=== PATIENT | female | born 1965 | race Caucasian/White ===

== ENCOUNTER 2021-11-15 07:08 | Day surgery (SDC) | payer MEDICAID, SELFPAY ==
--- NOTE | 2021-11-15 07:35 | W.ANESPRE ---
General Info Date of Service Date Performed: 11/15/21 Height: 5 ft 5 in Weight: 82.554 kg Body Mass Index (BMI): 30.2 Surgical Procedure: Operation Date: 11/15/21 08:25 Proposed Procedure Side Surgeon p Cataract Extraction with IOL Implant Left Len Ortega MD Meds Allergies and Home Medications Allergies Allergy/AdvReac Type Severity Reaction Status Date / Time Penicillins Allergy Severe Anaphylaxis Verified 11/15/21 07:34 bupropion Allergy Intermediate Skin Rash Verified 11/15/21 07:34 lisinopril Allergy Mild Other (See Verified 11/15/21 07:34 Comment) fluoxetine Allergy Unknown Other (See Verified 11/15/21 07:34 Comment) paroxetine Allergy Unknown Other (See Verified 11/15/21 07:34 Comment) citalopram AdvReac Intermediate Headache Verified 11/15/21 07:34 metformin AdvReac Intermediate Nausea Verified 11/15/21 07:34 seafood Allergy Intermediate Other (See Uncoded 11/11/21 09:19 Comment) Home Medication Medication Instructions Recorded docusate sodium 100 mg capsule 100 mg PO DAILY 11/11/21 duloxetine 60 mg capsule,delayed 60 mg PO DAILY 11/11/21 release empagliflozin 25 mg tablet 25 mg PO DAILY 11/11/21 letrozole 2.5 mg tablet 2.5 mg PO DAILY 11/11/21 levothyroxine 100 mcg tablet 100 mcg PO DAILY 11/11/21 linagliptin 5 mg tablet 5 mg PO QAM 11/11/21 losartan 25 mg tablet 25 mg PO DAILY 11/11/21 meloxicam 15 mg tablet 15 mg PO DAILY 11/11/21 metformin 500 mg tablet 500 mg PO DAILY 11/11/21 omeprazole 20 mg capsule,delayed 40 mg PO DAILY 11/11/21 release pravastatin 40 mg tablet 40 mg PO HS 11/11/21 pregabalin 150 mg capsule 150 mg PO BID 11/11/21 Current Visit Medications: Current Medications Generic Name Dose Route Start Last Admin Trade Name Freq PRN Reason Stop Dose Admin Acetaminophen 1,000 mg 11/15/21 06:00 Acetaminophen 500 Mg Tab PO Q4H PRN PRN Miscellaneous Medication 0 ml 11/15/21 06:00 Prednisolone 1%, Moxifloxacin 0.5%, Nepafenac 0.1% 5ml Btl OS DIRECTED MARTINEZ Miscellaneous Medication 0 ml 11/15/21 06:00 Tropicam./Phenyleph. (1/2.5%) 5 Ml Btl OS DIRECTED [facility] Tetracaine HCl 0 ml 11/15/21 06:00 Tetracaine 0.5% 4 Ml Btl OS DIRECTED [facility] PFSH Active Problems Active Problems: Problem Status Onset Code Nuclear sclerotic cataract of left eye H25.12 Medical History Medical History Adjustment disorder with mixed anxiety and depressed mood Anemia Back pain Bleeding disorder pt. states this was why she had her hysterectomy does not remember what it was Carcinoma of right breast with ductal and lobular features Cervical radiculopathy Chest wall pain Pt. states this is a result of fibromyalgia Chronic bronchitis Costochondritis, acute Depression Essential (primary) hypertension Feeling grief Female stress incontinence Fibromyalgia Financial difficulties GERD without esophagitis Housing situation unstable Hyperlipidemia Hypothyroidism IBS (irritable bowel syndrome) Inflammatory breast carcinoma Per office note: suspicion per dr. majano advised to return to [facility] hem/onc. Irritation of vulva Migraine Mixed hyperlipidemia Nicotine dependence Onychomycosis PTSD (post-traumatic stress disorder) Skin rash Tobacco abuse Type 2 diabetes mellitus with diabetic neuropathy Surgical History Surgical History History of partial mastectomy of right breast History of repair of hiatal hernia Hx of appendectomy Hx of cholecystectomy Hx of colonoscopy Hx of esophagogastroduodenoscopy Hx of hysterectomy Hx of tonsillectomy Tobacco Smoking/Tobacco Use Status: Current every day Tobacco Type: cigarettes Alcohol Alcohol Intake: never Substance Use Substance use: Never Substance use type: does not use Vital Signs and Lab Results Point of Care Results Point of Care Results: Finger Stick Blood Glucose 173 11/15/21 07:27 Lab Results Blood Type / Crossmatch: No Data to Display Complete Blood Count: No Data to Display Complete Metabolic Panel: No Data to Display Liver Function Panel: No Data to Display Coagulation Panel: No Data to Display Cardiac Panel: No Data to Display Arterial Blood Gas: No Data to Display Venous Blood Gas: No Data to Display Pancreas Panel: No Data to Display Thyroid Panel: No Data to Display Infectious Disease: No Data to Display Blood Cultures: No Data to Display Toxicology Panel: No Data to Display Anesthesia Assessment and Plan Anesthesia History Personal History: No History of Anesthesia Complications Family History: No Family History of Anesthesia Complications Exercise Tolerance Exercise Tolerance: Metabolic Equivalents>4 Pertinent Negatives Pertinent Negatives: No Symptoms of GERD Cardiac & Pulmonary Exam Cardiac Exam: Normal S1/S2 Heart Sounds Pulmonary Exam: Clear Bilateral Breath Sounds Implantable Cardiac Device Does patient have a Pacemaker or an ICD?: No Airway Exam Known Difficult Airway: No Mallampati Class: 2 Mouth Opening: Normal (> 3cm) Thyromental Distance: Greater than 3 cm Neck Range of Motion: Full ROM Neck Circumference: Normal Teeth Condition: Generalized Poor Dentition and Edentulous (No upper teeth) ASA Classification ASA Score: ASA 2 Emergency Case?: No NPO Status NPO Status: NPO Clears >2 hours, Solids >8 hours Anesthesia Plan Resuscitation Status: Full Code Anesthesia Technique: MAC Anesthesia Airway Planned: Natural Airway Monitors Used: Standard Monitors
[2021-11-15 07:38] VITALS: BP 124/78; PULSE 90; RESP 17; TEMP 36.4; O2SAT 96
[2021-11-15] MEDS: Tropicam./Phenyleph. (1/2.5%) 5 ML BTL OS ×2 (07:46→07:51)
[2021-11-15 08:02] VITALS: BMI 30.2
[2021-11-15] MEDS: Tetracaine 0.5% 4 ML BTL OS (08:09)
[2021-11-15] MEDS: Lidocaine 2% Jelly 6 ML SYR (08:09)
[2021-11-15] MEDS: Povidone-Iodine Ophth 30 ML BTL (08:10)
[2021-11-15] MEDS: Balanced Salt Soln.-PLUS 500 ML BAG (08:20)
[2021-11-15] MEDS: Duovisc Viscoelastic System EACH 1 EACH (08:20)
[2021-11-15 08:37] VITALS: BP 131/84; PULSE 85; RESP 16; TEMP 36; O2SAT 96
--- NOTE | 2021-11-15 08:38 | PDOC.DSDIS_ITS ---
Discharge Plan Disposition Patient Disposition: HOME Condition: Good Discharge Details Attending Provider: Len Ortega Primary Care Provider: TRINIDAD CHONG [place] Meds and New Rx's Prescriptions: No Action metformin 500 mg Tablet 500 mg PO DAILY 0RF pravastatin 40 mg Tablet 40 mg PO HS 0RF meloxicam 15 mg Tablet 15 mg PO DAILY 0RF levothyroxine 100 mcg Tablet 100 mcg PO DAILY 0RF losartan 25 mg Tablet 25 mg PO DAILY 0RF docusate sodium 100 mg Capsule 100 mg PO DAILY 0RF omeprazole 20 mg Capsule,Delayed Release(Dr/Ec) 40 mg PO DAILY 0RF letrozole 2.5 mg Tablet 2.5 mg PO DAILY 0RF duloxetine 60 mg Capsule,Delayed Release(Dr/Ec) 60 mg PO DAILY 0RF pregabalin 150 mg Capsule 150 mg PO BID 0RF linagliptin 5 mg Tablet 5 mg PO QAM 0RF empagliflozin 25 mg Tablet 25 mg PO DAILY 0RF Discharge Instructions Stand Alone Forms: Post-op Topical Cataract, Petar Garcia (DSU) Discharge Orders Discharge Orders: Discharge Order (Routine); Ordered 11/15/21 Ordered By: Len Ortega DS: Diagnosis Discharge Diagnosis (1) Nuclear sclerotic cataract of left eye: Status: Resolved
--- NOTE | 2021-11-15 08:39 | W.PM.OP ---
Date of service: 11/15/21 Time of Service: 08:39 Operative Note Operative Note DATE OF PROCEDURE: 11/15/21 PRE-OP DIAGNOSIS: Nuclear cataract, left eye POST-OP DIAGNOSIS: same PROCEDURE: Cataract extraction using phacoemulsification with intraocular lens implant, left eye SURGEON: Len Ortega ANESTHESIA TYPE: Local By Surgeon and MAC Refer to Anesthesia Record PATHOLOGY: none sent COMPLICATIONS: None Patient was transported to: same day Patient's condition: stable Implants: All and All / [employer] Tecnis [id number] Indications: Progressive decreased vision due to cataract, left eye Procedure Description: CATARACT SURGERY OPERATIVE REPORT PREOPERATIVE DIAGNOSIS: 1. Nuclear cataract, left eye POSTOPERATIVE DIAGNOSIS: Same OPERATION: 1. Cataract extraction using phacoemulsification with posterior chamber intraocular lens implant, left eye. IOL: IOL Superintendent Maintenance/Model: All & All / RYAN Tecnis [id number] IOL Power: + 24.0 diopters IOL Serial Number: [id number] Optic Diameter: 6.0 mm Haptic/Overall Diameter: 13.0 mm PHACO INFO: Tyrell Next Generation Contractingurion Vision System with OZil and Active Fluidics Cumulative Dispersed Energy (CDE): 8.42 seconds SURGEON: Len Ortega MD, JUSTO ANESTHESIA: Monitored A [facility] (MAC), with local sub-tenon's anesthetic infiltration COMPLICATIONS: None SPECIMENS: None INDICATIONS FOR PROCEDURE: The patient is a 56-year-old lady with history of diminished visual acuity in her left eye secondary to the development of nuclear cataract. She is significantly symptomatic that she desires cataract surgery and attempt to improve and maximize her vision. PROCEDURE: The correct surgical eye was identified and marked as the left eye and the pupil was dilated in the preoperative area using mydriatics and cycloplegics. The dilated pupil size was 7.0 mm. She elected to proceed without oral sedation. The patient was brought to the operating room where cardiopulmonary monitoring was instituted and surgical time-out was performed, confirming the correct operative eye and IOL power. Topical anesthesia was administered and ophthalmic povidone-iodine 5% was instilled into the conjunctival fornices. Lidocaine gel was applied to the cornea and the balta-ocular area was prepped with Betadine 10% solution and draped in the usual sterile fashion for intraocular surgery, including an aperture drape. A Tegaderm transparent film dressing was cut in half and used to cover the lashes and lid margins. Care was taken to sequester the lashes and lid margins under the Tegaderm dressing. A lid speculum was placed between the lids of the operative eye and the Tyrell LuxOR Revalia operating microscope was maneuvered into position. Archie scissors were then used to make a conjunctival buttonhole approximately 6mm posterior to the limbus in the inferonasal quadrant. Blunt dissection was carried out to expose bare sclera, and a blunt-tipped sub-tenon?s anesthesia cannula was introduced and passed posteriorly along the globe where non-preserved plain lidocaine was injected into posterior sub-Tenon?s space. A sideport knife was used to make a paracentesis port superiorly/superiortemporally. Intraocular phenylephrine/lidocaine was injected int the anterior chamber.. The anterior chamber was filled with viscoelastic. A 2.4mm keratome knife was used to construct a 2-plane near-clear corneal tunnel extending 2.0mm into clear cornea temporally. A flap was raised on the anterior capsule and capsulorhexis forceps were used to complete a continuous curvilinear capsulorhexis of 5.0mm. Balanced salt solution was then used to perform cortical cleaving hydrodissection and nuclear hydrodelineation until the lens could be freely rotated within the capsular bag. The lens nucleus was then disassembled and removed within the capsular bag and iris plane using phacoemulsification. Residual cortical material was removed using the 45-degree angled silicone I/A tip with 0.3mm port. The posterior capsule was carefully polished to remove as much residual lens epithelial cells as safely possible. The capsular bag was then inflated and the anterior chamber deepened with viscoelastic. The lens implant described above was inserted into the capsular bag using the RYAN [place] Injector. A Kuglen hook was used to dial the IOL into position. Residual viscoelastic was then removed first from posterior to the IOL, then from the anterior chamber using the I/A handpiece. The lens implant was noted to center nicely within the capsular bag. The incisions were stromally hydrated, and the anterior chamber was reformed using BSS. Then 0.5cc of moxifloxacin 1.0mg/ml were injected into the capsular bag and anterior chamber. The incisions were checked with a Weck spear and found to be secure. Several drops of ophthalmic povidone-iodine 5% were then applied to the eye followed by two drops of Imprimis combination prednisolone/moxifloxacin/nepafenac solution. The drapes were removed and a clear plastic protective eye shield was placed over the eye. The patient was then returned to [facility] Day Surgery in stable condition.
--- NOTE | 2021-11-15 09:25 | W.ANESPOSTOP ---
Postoperative Evaluation Date, Time and Location Date Performed: 11/15/21 Time Performed: 08:40 Patient Location: Day Surgery Unit Vital Signs Most Recent Imported Vital Signs: Most Recent Vital Signs Temp Pulse Resp BP Pulse Ox 36.0 C L 85 16 131/84 96 11/15/21 08:37 11/15/21 08:37 11/15/21 08:37 11/15/21 08:37 11/15/21 08:37 Pain Score Most Recent Pain Score: Most Recent Pain Score Pain Level 0 11/15/21 08:37 Assessment Mental Status: Awake (Alert & Oriented to Patient Baseline) Airway and Respiratory Function: Patent airway with normal (patient baseline) respiratory exam Cardiovascular Function: Hemodynamically Stable Hydration Status: Adequately Hydrated Nausea & Vomiting: No Nausea or Vomiting Pain: Pt. Denies Any Pain Peripheral Nerve Block: Patient did not receive a nerve block
== END 2021-11-15 08:59 | disposition home or self-care (01) ==
PROVIDERS: Visit Provider Ophthalmology
PROC: (CPT 66984; principal; 2021-11-15 08:15)
DX: H25.12 Age-related nuclear cataract, left eye (principal); E11.40 Type 2 diabetes mellitus with diabetic neuropathy, unspecified; I10 Essential (primary) hypertension; K21.9 Gastro-esophageal reflux disease without esophagitis; F17.210 Nicotine dependence, cigarettes, uncomplicated
CPT/HCPCS: 66984; V2632

== ENCOUNTER 2023-09-08 11:26 | Emergency (ER) | payer MEDICAID, SELFPAY ==
[2023-09-08 11:31] VITALS: BP 166/90; PULSE 82; RESP 18; TEMP 36.6; O2SAT 93
[2023-09-08 11:38] VITALS: BP 166/90; PULSE 82; RESP 18; TEMP 36.6; O2SAT 93
--- NOTE | 2023-09-08 11:43 | W.ED.GENAD ---
Discharge Plan Disposition Patient Disposition: Home Condition: Improving Discharge Details Chief Complaint: RespSymp Clinical Impression: Cough Primary Care Provider: Anuradha Snyder ED Provider: Len Shah Home Meds and New Rx's Prescriptions: No Action metformin 500 mg Tablet 500 mg PO DAILY pravastatin 40 mg Tablet 40 mg PO HS meloxicam 15 mg Tablet 15 mg PO DAILY levothyroxine 100 mcg Tablet 100 mcg PO DAILY losartan 25 mg Tablet 25 mg PO DAILY docusate sodium 100 mg Capsule 100 mg PO DAILY omeprazole 20 mg Capsule,Delayed Release(Dr/Ec) 40 mg PO DAILY letrozole 2.5 mg Tablet 2.5 mg PO DAILY duloxetine 60 mg Capsule,Delayed Release(Dr/Ec) 60 mg PO DAILY pregabalin 150 mg Capsule 150 mg PO BID linagliptin 5 mg Tablet 5 mg PO QAM empagliflozin 25 mg Tablet 25 mg PO DAILY Discharge Instructions Instructions: Acute Cough (ED) Stand Alone Forms: Work Release HPI General Date/Time Provider Initiated Documentation: 09/08/23 11:30. HPI Narrative: 57-year-old female presents with nonproductive cough for the last 2 days, multiple sick contacts at home. Related Data Home Medications Medication Instructions Recorded Confirmed docusate sodium 100 mg capsule 100 mg PO DAILY 11/11/21 11/15/21 duloxetine 60 mg capsule,delayed 60 mg PO DAILY 11/11/21 11/15/21 release empagliflozin 25 mg tablet 25 mg PO DAILY 11/11/21 11/15/21 letrozole 2.5 mg tablet 2.5 mg PO DAILY 11/11/21 11/15/21 levothyroxine 100 mcg tablet 100 mcg PO DAILY 11/11/21 11/15/21 linagliptin 5 mg tablet 5 mg PO QAM 11/11/21 11/15/21 losartan 25 mg tablet 25 mg PO DAILY 11/11/21 11/15/21 meloxicam 15 mg tablet 15 mg PO DAILY 11/11/21 11/11/21 metformin 500 mg tablet 500 mg PO DAILY 11/11/21 11/15/21 omeprazole 20 mg capsule,delayed 40 mg PO DAILY 11/11/21 11/15/21 release pravastatin 40 mg tablet 40 mg PO HS 11/11/21 11/15/21 pregabalin 150 mg capsule 150 mg PO BID 11/11/21 11/15/21 Allergies Allergy/AdvReac Type Severity Reaction Status Date / Time Penicillins Allergy Severe Anaphylaxis Verified 09/08/23 11:35 bupropion Allergy Intermediate Skin Rash Verified 09/08/23 11:35 lisinopril Allergy Mild Other (See Verified 09/08/23 11:35 Comment) fluoxetine Allergy Unknown Other (See Verified 09/08/23 11:35 Comment) paroxetine Allergy Unknown Other (See Verified 09/08/23 11:35 Comment) citalopram AdvReac Intermediate Headache Verified 09/08/23 11:35 metformin AdvReac Intermediate Nausea Verified 09/08/23 11:35 seafood Allergy Intermediate Other (See Uncoded 09/08/23 11:35 Comment) General Stated Complaint: RespSymp CARLENE: 4 Review of Systems Narrative: Review of Systems Constitutional: negative Eyes: negative ENT: negative Cardiovascular: negative Respiratory: Cough Gastrointestinal: negative : negative Musculoskeletal: negative Skin: negative Neurologic: negative Psych: negative Exam Narrative Exam Narrative: Physical Examination General: alert, awake, cooperative, resting comfortably, no acute distress HEENT: normocephalic, atraumatic; PERRL, EOM intact, conjunctiva normal; no nasal discharge; moist mucous membranes, oral and pharyngeal mucosa normal, tolerating secretions Neck: supple, trachea midline; full ROM Chest: normal to inspection Respiratory: normal respiratory effort, speaking in full sentences, clear to auscultation, no wheezing, rales or rhonchi Cardiac: regular rate, regular rhythm, S1S2 intact, no murmurs rubs or gallops Skin: no lesions, rashes or trauma appreciated Neuro: AAOx3, normal speech, moving all extremities Psych: Appropriate mood and affect Course Vital Signs Vital signs: Vital Signs Temperature 36.6 C 09/08/23 11:31 Pulse 82 09/08/23 11:31 Respiratory Rate 18 09/08/23 11:31 Blood Pressure 166/90 H 09/08/23 11:31 Pulse Oximetry 93 09/08/23 11:31 Temperature 36.6 C 09/08/23 11:38 Pulse 82 09/08/23 11:38 Respiratory Rate 18 09/08/23 11:38 Respiratory Effort Normal 09/08/23 11:38 Respiratory Depth Normal 09/08/23 11:38 Blood Pressure 166/90 H 09/08/23 11:38 Blood Pressure Position Sitting 09/08/23 11:38 Pulse Oximetry 93 09/08/23 11:38 Oxygen Delivery Method Room Air 09/08/23 11:38 Oxygen Flow Rate 0 09/08/23 11:38 Pain Level 0 09/08/23 11:38 Medical Decision Making 57-year-old female presents with nonproductive cough for the last 2 days, multiple sick contacts at home, some sinus pressure and congestion, afebrile nontoxic. Lungs clear. No respiratory distress. Trial of dexamethasone likely component of viral URI versus orchitis. Low suspicion for pneumonia pneumothorax ACS PE or aortic pathology. Home care instructions return precautions given. Quality:SDOH Health Related Social Needs: No Data to Display PFSH All Active Problems (Updated 09/08/23 @ 11:45 by Len Shah MD) Cough (Acute) Medical History (Updated 09/08/23 @ 11:45 by Len Shah MD) Onychomycosis IBS (irritable bowel syndrome) Hypothyroidism Fibromyalgia Chronic bronchitis Bleeding disorder pt. states this was why she had her hysterectomy does not remember what it was Anemia Chest wall pain Pt. 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 majano advised to return to [facility] [place] hem/onc. Surgical History (Updated 11/15/21 @ 08:39 by Len Ortega MD) Hx of tonsillectomy Hx of cholecystectomy Hx of colonoscopy History of repair of hiatal hernia History of partial mastectomy of right breast Hx of appendectomy Hx of esophagogastroduodenoscopy Hx of hysterectomy Social History Smoking/Tobacco Use Status: Current every day Tobacco Type: cigarettes Smoking risk assessment performed?: Yes Alcohol Intake: never Drug use: Never Substance use type: does not use Do you feel safe at home: Yes Do you feel safe in your relationship?: Yes
[2023-09-08] MEDS: Dexamethasone 10 MG/ML VIAL PO (11:46)
== END 2023-09-08 11:51 | disposition home or self-care (01) ==
PROVIDERS: Emergency Provider Emergency Medicine; PCP Nurse Practitioner Family
DX: R05.1 Acute cough (principal); I10 Essential (primary) hypertension
CPT/HCPCS: 99282; 99283; J1100

== ENCOUNTER 2023-09-14 15:40 | Outpatient (REF) | payer MEDICAID, SELFPAY ==
[2023-09-14 19:08] LABS: HGB 13.3 g/dL (11.2-15.7); MCH 29.6 pg (27.0-33.0); MCHC 33.3 % (32.0-36.0); MCV 89 fL (80-95); MPV 9.1 fL (8.0-11.0); Platelet Count 261 10^3/uL (130-400); RBC 4.49 10^6/uL (3.93-5.22); RDW 13.5 % (11.7-14.6); RDW-SD 44.3 fL
[2023-09-14 19:14] LABS: ALT 13 U/L (14-59); AST 8 U/L (15-37); Albumin 3.4 g/dL (3.4-5.0); Alkaline Phosphatase 84 U/L (46-116); Anion Gap 9.8 mmol/L (3-11); BUN 7 mg/dL (7-18); Bilirubin, Total 0.3 mg/dL (0.2-1.0); CO2 28.2 mmol/L (21.0-32.0); CREATININE 0.8 mg/dL (0.55-1.02); Calculated LDL 134 mg/dL (<100); Chloride 103 mmol/L (98-107); Cholesterol 191 mg/dL (<200); Estimated GFR 85.35 (mL/min/1.73m2); Glucose 106 mg/dL (74-106); HDL Cholesterol 33 mg/dL (40-60); Potassium 3.8 mmol/L (3.5-5.1); Sodium 141 mmol/L (136-145); Total Protein 6.9 g/dL (6.4-8.2); Triglyceride 120 mg/dL (<150)
[2023-09-14 19:34] LABS: Hemoglobin A1C 7.2 % (<5.7)
== END 2023-09-14 15:41 | disposition home or self-care (01) ==
LOC: NCHCN 15:40
PROVIDERS: PCP Nurse Practitioner Family; Visit Provider Student in an Organized Health Care Education/Training Program
DX: I10 Essential (primary) hypertension (principal)
CPT/HCPCS: 80053; 80061; 85027; 83036

== ENCOUNTER 2023-12-15 14:40 | Outpatient (REF) | payer OTHER, MEDICAID, SELFPAY ==
[2023-12-15 15:50] LABS: COMMENT (LAB VIEW ONLY) 101.01 mg/dL; Microalb ug/mg Crea 20.6 ug/mg Cr
[2023-12-15 16:19] LABS: Calculated LDL 79 mg/dL (<100); Cholesterol 133 mg/dL (<200); HDL Cholesterol 32 mg/dL (40-60); TSH (W/Ref FT4) 0.62 uIU/mL (0.36-3.74); Triglyceride 113 mg/dL (<150)
== END 2023-12-15 14:41 | disposition home or self-care (01) ==
LOC: NCHCN 14:40
PROVIDERS: Visit Provider Student in an Organized Health Care Education/Training Program
DX: E11.9 Type 2 diabetes mellitus without complications (principal); E03.9 Hypothyroidism, unspecified; E78.5 Hyperlipidemia, unspecified
CPT/HCPCS: 80061; 82043; 82570; 84443

== ENCOUNTER 2024-01-19 23:44 | Outpatient (REF) | payer OTHER, MEDICAID, SELFPAY ==
[2024-01-19 16:11] LABS: HCT 43.9 % (36.0-46.0); HGB 14.6 g/dL (11.2-15.7); MCH 29.8 pg (27.0-33.0); MCHC 33.3 % (32.0-36.0); MCV 90 fL (80-95); MPV 10.1 fL (8.0-11.0); Platelet Count 175 10^3/uL (130-400); RDW 12.9 % (11.7-14.6); RDW-SD 42.5 fL; WBC 6.34 10^3/uL (4.4-10.8)
[2024-01-19 16:43] LABS: ALT 22 U/L (14-59); AST 10 U/L (15-37); Albumin 3.7 g/dL (3.4-5.0); Alkaline Phosphatase 94 U/L (46-116); Anion Gap 8.5 mmol/L (3-11); BUN 8 mg/dL (7-18); Bilirubin, Total 0.42 mg/dL (0.2-1.0); CO2 29.5 mmol/L (21.0-32.0); CREATININE 0.6 mg/dL (0.55-1.02); Calcium 9.3 mg/dL (8.5-10.1); Chloride 104 mmol/L (98-107); Estimated GFR 103.98 (mL/min/1.73m2); Glucose 188 mg/dL (74-106); Magnesium 1.5 mg/dL (1.8-2.4); Potassium 3.9 mmol/L (3.5-5.1); Sodium 142 mmol/L (136-145)
== END 2024-01-19 23:45 | disposition home or self-care (01) ==
LOC: NCHCN 23:44
PROVIDERS: Visit Provider Student in an Organized Health Care Education/Training Program
DX: R55 Syncope and collapse (principal)
CPT/HCPCS: 80053; 85027; 83735

== ENCOUNTER 2024-01-30 08:20 | Outpatient (CLI) | payer OTHER, MEDICAID, SELFPAY ==
--- NOTE | 2024-01-30 08:15 | RT.EKG_ITS ---
APPROVED REPORT Exam: Resting ECG Reason for Exam: VT Patient Location: O HR:81 bpm ECG Measurements Heart Rate 81 AXIS AL 167 P 45 QRSd 151 QRS -57 QT 418 T 10 QTc 486 Conclusion Sinus rhythm...normal P axis, V-rate 50- 99 Right bundle branch block...QRSd>120, terminal axis(90,270)
== END 2024-01-30 08:21 | disposition home or self-care (01) ==
LOC: DI.CARD 08:21
PROVIDERS: Visit Provider Internal Medicine Cardiovascular Disease
DX: I21.9 Acute myocardial infarction, unspecified (principal); I45.10 Unspecified right bundle-branch block; I10 Essential (primary) hypertension
CPT/HCPCS: 93010

== ENCOUNTER → 2024-01-30 11:00 | Outpatient (BNVA) | payer OTHER, MEDICAID, SELFPAY | PROVIDERS: Visit Provider Internal Medicine Cardiovascular Disease | DX: I25.10 Atherosclerotic heart disease of native coronary artery without angina pectoris (principal); I10 Essential (primary) hypertension; I45.10 Unspecified right bundle-branch block; I21.9 Acute myocardial infarction, unspecified | CPT/HCPCS: 93005; 99214 ==

== ENCOUNTER → 2024-02-07 01:00 | Outpatient (CLI) | payer OTHER, MEDICAID, SELFPAY ==
--- NOTE | 2024-02-07 | DI.MAMMO_ITS ---
Exam(s) MG MAMMO SCREENING 60 MIN DUR EXAM: MG MAMMO SCREENING 60 MIN DUR CLINICAL HISTORY: Z12.39 Screening, HX of inflammatory Ca with ductal Lobular features, s/p TECHNIQUE: Mammograms were interpreted according to the usual protocol including computer analysis w [facility] CAD system, tomosynthesis and C-view imaging. Additional CC and MLO spot compression views inclu ding tomography were performed for additional compression of the right breast. COMPARISON: US US GUIDED BIOPSY from 08/05/2019 MG MG MAMMO UNIL DIAG from 08/05/2019 MG Needle Localization, Right from 09/23/2019 MG Breast Specimen, Right from 09/23/2019 MG Combo Bilateral from 11/10/2020 MG Mammography Diagnostic from 09/09/2021 US US Breast Rt Unilateral Lmtd from 09/09/2021 FINDINGS: The breasts are composed of scattered fibroglandular densities, Breast Density category B. No suspicious masses or suspicious microcalcifications are seen. There is considerable post lumpecto my scarring. Diffuse skin thickening again noted in the right breast. New areas of coarse calcifica tion in the posterosuperior right breast with the appearance on fat necrosis. Other areas of coarse calcification in the inferomedial right breast, also consistent with fat necrosis. No abnormality is seen in the left breast. No axillary lymph nodes are seen. There has been no significant change from prior exams. IMPRESSION: BI-RADS Category 2 - Benign Findings of post lumpectomy changes . Yearly screening mammography is recommended. Breast Density - Category B, scattered fibroglandular densities. A negative radiographic report should not delay biopsy if a dominant or clinically suspicious mass is present. Up to ten percent of cancers are not identified on mammography. A negative report may reinforce clinical impression. Adenosis and dense breasts may obscure an underlying neoplasm. False positive reports average 6 to 10%. Patient will receive a letter notifying them of these results.
== END ==
PROVIDERS: Visit Provider Student in an Organized Health Care Education/Training Program
DX: Z12.39 Encounter for other screening for malignant neoplasm of breast (principal); Z85.3 Personal history of malignant neoplasm of breast; Z12.31 Encounter for screening mammogram for malignant neoplasm of breast
CPT/HCPCS: 77063; 77067

== ENCOUNTER 2024-03-18 13:55 | Outpatient (REF) | payer OTHER, MEDICAID, SELFPAY ==
[2024-03-18 16:03] LABS: Anion Gap 10.6 mmol/L (3-11); BUN 6 mg/dL (7-18); CO2 27.4 mmol/L (21.0-32.0); CREATININE 0.7 mg/dL (0.55-1.02); Calculated LDL 84 mg/dL (<100); Chloride 105 mmol/L (98-107); Cholesterol 132 mg/dL (<200); Estimated GFR 100.19 (mL/min/1.73m2); Glucose 122 mg/dL (74-106); HDL Cholesterol 29 mg/dL (40-60); Magnesium 1.7 mg/dL (1.8-2.4); Potassium 3.6 mmol/L (3.5-5.1); Sodium 143 mmol/L (136-145); Triglyceride 97 mg/dL (<150)
[2024-03-18 16:21] LABS: Hemoglobin A1C 8.6 % (<5.7)
[2024-03-18 23:26] LABS: Hepatitis C Ab w Rflx HCV PCR Negative (Negative)
[2024-03-18 23:30] LABS: HIV-1/2 Ag & Ab Screen Negative (Negative)
== END 2024-03-18 13:56 | disposition home or self-care (01) ==
LOC: NCHCN 13:55
PROVIDERS: PCP Student in an Organized Health Care Education/Training Program; Visit Provider Student in an Organized Health Care Education/Training Program
DX: E11.9 Type 2 diabetes mellitus without complications (principal); Z11.59 Encounter for screening for other viral diseases; E78.5 Hyperlipidemia, unspecified
CPT/HCPCS: 80048; 80061; 86803; 87389; 83036; 83735

== ENCOUNTER 2024-03-25 03:28 | Outpatient (CLI) | payer OTHER, MEDICAID, SELFPAY ==
--- NOTE | 2024-03-25 16:00 | DI.CTLCSR_ITS ---
Exam(s) CT CHEST LUNG CANCER SCREEN EXAM: CT CHEST LUNG CANCER SCREEN CLINICAL HISTORY: F17.210 Nicotine dependence, cigarettes, uncomplicated TECHNIQUE: Imaging Protocol: Axial computed tomography images with coronal and sagittal reformatted images were created and reviewed. Low dose screening protocol. COMPARISON: No exams were available for comparison FINDINGS: Tracheobronchial tree: No bronchiectasis or mucus plugging. Mediastinum and Rossy: No dominant adenopathy or fluid collection. Pulmonary parenchyma: No consolidation or dominant measurable mass. No visible emphysematous changes. Lung Nodules: 6 millimeter perifissural nodule anterior right lower lobe. 6 millimeter nodule right upper lobe. Pleura: No effusion. No pneumothorax. Heart: The heart is not dilated. Mild coronary artery calcifications are seen. Aorta: Thoracic aorta non-dilated. Upper abdomen: Unremarkable. Bones: Unremarkable for age. Soft Tissues: Skin thickening and scarring at inferior right breast. IMPRESSION: 6 millimeter nodule right upper lobe. 6 millimeter perifissural nodule anterior right lower lobe. S ix month follow-up low-dose CT recommended. Lung RADS Cat 3 - Probably Benign: Probably benign finding(s) - short term follow-up suggested; inclu de nodules with a low likelihood of becoming a clinically active cancer. Lung-RADS 1.0 CATEGORIES: Category 0 - Prior chest CT exam(s) being located for comparison. Category 1 - Annual screening in 12 months. No nodules or definitely benign nodules. Category 2 - Annual screening in 12 months. Benign appearance. Nodules with low likelihood of becomin g active cancer. Category 3 - 6-month follow-up. Probably benign. Short-term follow-up suggested. Nodules with low lik elihood of becoming active cancer. Category 4A - 3-month follow-up and CT/PET if >8 mm in size. Suspicious finding. Findings which requi re additional testing. Category 4B - Findings which require additional testing and tissue sampling. Category 4X - Category 3 or 4 nodules with additional features or imaging findings that increases the suspicion of malignancy. Modifier S- Potentially clinically significant findings (non lung cancer) RADIATION DOSE DELIVERED: !Error Total DLP DATA REPOSITORY: All CT scans at this facility are submitted to the National Radiology Data Registry (NRDR) Dose Index Registry (DIR) with the [employer] (ACR). RADIATION OPTIMIZATION: All CT scans at this facility use at least one of these dose optimization te chniques: automated exposure control; mA and/or kV adjustment per patient size (includes targeted exa ms where dose is matched to clinical indication); or iterative reconstruction.
== END 2024-03-25 03:48 ==
LOC: DI 03:28
PROVIDERS: PCP Student in an Organized Health Care Education/Training Program; Visit Provider Student in an Organized Health Care Education/Training Program
DX: F17.210 Nicotine dependence, cigarettes, uncomplicated (principal); Z12.2 Encounter for screening for malignant neoplasm of respiratory organs; R91.1 Solitary pulmonary nodule
CPT/HCPCS: 71271

== ENCOUNTER → 2024-07-30 10:36 | Outpatient (BNVA) | payer MEDICARE, MEDICAID, SELFPAY | PROVIDERS: PCP Student in an Organized Health Care Education/Training Program; Referring Provider Student in an Organized Health Care Education/Training Program; Visit Provider Internal Medicine Cardiovascular Disease | DX: I25.10 Atherosclerotic heart disease of native coronary artery without angina pectoris (principal) | CPT/HCPCS: 99213 ==

== ENCOUNTER 2024-08-15 00:37 | Outpatient (CLI) | payer MEDICARE, MEDICAID, SELFPAY ==
--- NOTE | 2024-08-15 06:15 | DI.NM_ITS ---
APPROVED REPORT Exam: Pharmacologic Patient Location: Out-Patient Room/Bed: Stress Nurse: Roxie Carrizales RN Ordering Provider:DOMINGO PETIT, Contact Number: BMI: 31.88 Baseline Rhythm: Sinus Rhythm Indications: Known CAD, atypical chest pain, atherosclerotic heart disease Medical History Medical History: CAD, DMT2, hx. [place], hypothyroidism, fibromyaligia, anemia, PTSD, depression, back мария n, GERD, adjustment disorder with mixed anxiety/depression, HTN, tobacco dependence Cardiac Medications: Aspirin, atorvastatin, duloxetine, letrozole, levothyroxine, ozempic, losartan, magnesium, metoprolol succinate, nitro, omeprazole Allergies: Bupropion, citalopram, fluoxetine, metformin, paroxetine, penocliins, shellfish Cardiac Risk Factors: Family hx, HTN, HLD, CVD, diabetes, COPD, smoker Previous Cardiac Procedures: Cardiac stent 10/2022 Pretest Chest Pain Characteristics: 07/19 chest ache Exercise History: Sedentary Physical Disabilities: None Lung Sounds: Diminishe bilateral bases Heart Sounds: Regular Stress Test Details Test: Exercise stress converted to pharmacologic stress due to failure to obtain a diagnostic stress test. Reason for pharmacologic stress test: changed from exercise stress test due to inability to reach t arget heart rate. Nuclear Acquisition: Rest Tc-99m/Stress Tc-99m 1 day Rest Isotope: Tc-99m Sestamibi. Dose: 10.6 Date: 08/15/2024 Injection Time: 0910 Stress Isotope: Tc-99m Sestamibi. Dose: 32.8 Date: 08/15/2024 Injection Time: 1105 HR Resting HR Supine: 64 bpm Max Heart Rate (APMHR): 162 bpm Resting HR Standin bpm Target HR (85% APMHR): 138 bpm Max HR Achieved: 120 bpm % of APMHR: 74 Recovery HR: 88 bpm HR response to stress: Blunted HR response to stress BP Resting BP Supine: 130/74 mmHg Resting BP Standin/80 mmHg Max BP: 140/90 mmHg Recovery BP: 110/76 mmHg BP response to stress: Normal blood pressure response to stress. ECG Resting ECG: Sinus Rhythm Ectopy: None Stress ECG: Sinus tachycardia, intermittent RBBB ST Change: Nondiagnostic low heart rate Recovery ECG: Sinus Rhythm, intermittent RBBB Recovery ST Change: Nondiagnostic low heart rate Clinical Stress Symptoms: Mild SOB Exercise duration: 04 min49 sec Highest Stage Reached: Stage 2: 2.5 mph at 12% grade. Exercise capacity: 6.77 METs Angina Score: Non-Limiting Rate Pressure Product: [id number] Stress ECG Conclusion 1. Resting electrocardiogram shows an incomplete right bundle branch block 2. Patient underwent testing using a combination of pharmacologic stress with regadenoson and low-lev el exercise 3. Peak heart rate achieved was 76% of maximal for age. Peak workload was 6.77 METS 4. The electrocardiographic portion of the test was nondiagnostic due to inadequate heart rate 5. See MPI report Stress Test Summary STAGE Time (mins) Speed (mph) Grade (%) HR BP SpO2 SYMPTOMS METS Supine 64 130/74 Standing 63 122/80 93% 1 3 1.7 10 104 128/80 94% Mod SOB 4.5 2 6 2.5 12 107 Mod SOB 7 1 min post Lexiscan injection 96 140/78 3 min post Lexiscan injection 112 140/90 98% 6 min post Lexiscan injection 90 136/80 98% 9 min post Lexiscan injection 90 124/78 98% 12 min post Lexiscan injection 88 110/76 SOB resolved Patient transitioned to walking sharon r/t inability to reach target heart and patient c/o SOB. Patient noted go into an intermittent RBBB. EKG viewd by Dr. Petit and emilia for patient to proceed to imaging. Patient in sinus rhythm at stress portion of test end. Patient ambulated to imaging in no apparent ds itress. All symptom resolved at this time. 1/10 chest tightness uinchaged throughout test. MPI Conclusion Myocardial perfusion is normal. There is no ischemia or evidence of prior infarction Calculated EF is 50% but visually appears closer to 60%. Wall motion is normal
[2024-08-15] MEDS: Regadenoson 0.4 MG/5 ML SYR IVP (11:41)
== END 2024-08-15 00:57 ==
LOC: DI 00:37
PROVIDERS: PCP Student in an Organized Health Care Education/Training Program; Visit Provider Internal Medicine Cardiovascular Disease
DX: I25.10 Atherosclerotic heart disease of native coronary artery without angina pectoris (principal)
CPT/HCPCS: 78452; 93016; 93018; 93017; J2785

== ENCOUNTER 2024-09-25 21:46 | Outpatient (REF) | payer MEDICARE, MEDICAID, SELFPAY ==
[2024-09-25 22:11] LABS: COMMENT (LAB VIEW ONLY) 48.58 mg/dL; Microalb ug/mg Crea 26.6 ug/mg Cr
== END 2024-09-25 21:47 | disposition home or self-care (01) ==
LOC: NCHCN 21:46
PROVIDERS: PCP Student in an Organized Health Care Education/Training Program; Visit Provider Student in an Organized Health Care Education/Training Program
DX: E11.9 Type 2 diabetes mellitus without complications (principal)
CPT/HCPCS: 82043; 82570

== ENCOUNTER 2024-10-03 01:44 | Outpatient (CLI) | payer MEDICARE, MEDICAID, SELFPAY ==
--- NOTE | 2024-10-03 13:49 | DI.CT_ITS ---
Exam(s) CT CHEST WO EXAM: CT CHEST WO CLINICAL HISTORY: SOLITARY PULMONARY NODULE,R91.1,6 MO F/U. TECHNIQUE: Multi planar reconstructions were performed. CONTRAST MATERIAL: None COMPARISON: CT CT CHEST LUNG CANCER SCREEN from 03/25/2024 FINDINGS: CHEST: LUNGS: Previously described 6 millimeter fissure related nodule in the right lung appears unchanged. The previously described 6 millimeter nodule in the medial aspect of the right upper lobe also remai ns unchanged. A smaller 3 millimeter nodule in the right upper lobe is also unchanged. There are no new right lung nodules and there are no significant nodules in the opposite-left lung. There are no pleural effusions. MEDIASTINUM: There is no obvious hilar nor mediastinal adenopathy. No obvious axillary adenopathy CARDIAC: Heart size is normal. There is no pericardial effusion.Caliber of the thoracic aorta is wit hin normal limits. VISUALIZED UPPER ABDOMEN:No significant adrenal masses. Gallbladder surgically absent. Spleen size normal. OSSEOUS: No significant osseous lesions.No fractures.. IMPRESSION: 1. Stable size and appearance of the previously described small nodules in the right lung. 2. No new lung nodules nor pleural effusions nor intrathoracic adenopathy. 3. Recommend follow-up CT scan in 1 year, earlier if clinically indicated. RADIATION DOSE DELIVERED: 185.29mGy.cm Total DLP DATA REPOSITORY: All CT scans at this facility are submitted to the National Radiology Data Registry (NRDR) Dose Index Registry (DIR) with the [employer] ([employer]). RADIATION OPTIMIZATION: All CT scans at this facility use at least one of these dose optimization te chniques: automated exposure control; mA and/or kV adjustment per patient size (includes targeted exa ms where dose is matched to clinical indication); or iterative reconstruction.
== END 2024-10-03 02:04 ==
LOC: DI 01:44
PROVIDERS: PCP Student in an Organized Health Care Education/Training Program; Visit Provider Student in an Organized Health Care Education/Training Program
DX: R91.1 Solitary pulmonary nodule (principal)
CPT/HCPCS: 71250